=== PATIENT | male | born 2000 | race Caucasian/White ===

== ENCOUNTER 2020-02-17 15:48 | Emergency (ER) | payer OTHER ==
[~2020-02-17] VITALS: Ht 193 cm; Wt 146.0 kg
[2020-02-17 15:48] VITALS: BP 130/60
[2020-02-17] MEDS ORDERED: DERMABOND TOPICAL SKIN ADHESIVE TOP ONE (16:15)
== END 2020-02-17 16:35 | disposition home or self-care (01) ==
LOC: M ED 15:48
DX: S61.412A Laceration without foreign body of left hand, initial encounter (principal); W26.8XXA Contact with other sharp object(s), not elsewhere classified, initial encounter; Y92.018 Other place in single-family (private) house as the place of occurrence of the external cause; Z88.8 Allergy status to other drugs, medicaments and biological substances

== ENCOUNTER 2021-02-09 10:17 | Inpatient (IN) | payer OTHER ==
[~2021-02-09] VITALS: Ht 193 cm; Wt 142.8 kg
[2021-02-09] MEDS ORDERED: ACET1TAB55 PO (10:28)
[2021-02-09 11:12] LABS: ABG BASE EXCESS 0.1 (-2.0-2.0); ABG HCO3 23.2 MEQ/L (22.0-26.0); ABG O2 SATURATION 98.5 % (95.0-99.0); ABG PARTIAL PRESSURE CO2 33.6 mmHg (35.0-45.0); ABG STANDARD HCO3 24.6 MEQ/L (22.0-26.0); ABG TOTAL CO2 24.2 MEQ/L (22.0-29.0); ABG pH (ARTERIAL) 7.457 UNITS (7.350-7.450)
[2021-02-09 11:39] LABS: BASO % 0.2 % (0.0-1.0); EOS % 0.3 % (0.0-3.0); HEMATOCRIT 45.2 % (42.0-52.0); HEMOGLOBIN 15.3 g/dl (13.5-17.5); LYMPH # 1.1 10^3/uL (1.5-5.0); LYMPH % 7.9 % (24.0-44.0); MEAN CORPUSCULAR HEMOGLOBIN 29.8 pg (27.0-33.0); MEAN CORPUSCULAR HGB CONC 33.8 g/dl (32.0-36.5); MEAN CORPUSCULAR VOLUME 88.1 fl (80.0-96.0); MONO # 0.7 10^3/uL (0.0-0.8); MONO % 5.3 % (2.0-8.0); NEUTROPHILS # 11.6 10^3/uL (1.5-8.5); NEUTROPHILS % 85.6 % (36.0-66.0); PLATELET COUNT, AUTOMATED 416 10^3/uL (150-450); RED BLOOD COUNT 5.13 10^6/uL (4.30-6.10); WHITE BLOOD COUNT 13.6 10^3/uL (4.0-10.0)
[2021-02-09 11:50] LABS: INR 1.54; PROTHROMBIN TIME 18.9 SECONDS (12.7-14.5)
[2021-02-09 11:51] LABS: PARTIAL THROMBOPLASTIN TIME 36.4 SECONDS (25.9-37.0)
[2021-02-09 12:04] LABS: CK-MB VALUE MASS < 1.0 NG/ML (<3.6); CPK CREATINE PHOSPHOKINASE 300 U/L (39-308); MB/CK RELATIVE INDEX 0.33 (< OR =4)
[2021-02-09 12:05] LABS: ALBUMIN 3.3 GM/DL (3.2-5.2); ALT/SGPT 117 U/L (12-78); BILIRUBIN,TOTAL 1.6 MG/DL (0.2-1.0); BLOOD UREA NITROGEN 18 MG/DL (7-18); C REACTIVE PROTEIN QUANTITATIV 8.31 MG/DL (0.00-0.30); CALCIUM LEVEL 8.8 MG/DL (8.5-10.1); CARBON DIOXIDE LEVEL 25 MEQ/L (21-32); CHLORIDE LEVEL 108 MEQ/L (98-107); FERRITIN 1301 NG/ML (26-388); GLUCOSE, FASTING 133 MG/DL (70-100); LDH LACTATE DEHYDROGENASE 701 U/L (87-241); MAGNESIUM LEVEL 2.8 MG/DL (1.8-2.4); POTASSIUM SERUM 4.6 MEQ/L (3.5-5.1); SODIUM LEVEL 142 MEQ/L (136-145); TOTAL PROTEIN 7.8 GM/DL (6.4-8.2)
[2021-02-09] MEDS ORDERED: HOME MED LIST COMPLETE! XX SCH (12:05)
[2021-02-09 12:31] LABS: D-DIMER QUANT 3994.87 ng/ml (<500)
[2021-02-09] MEDS ORDERED: ACETAMINOPHEN TAB 650MG DOSE (2X325MG) PO PRN (12:40)
[2021-02-09] MEDS: ASPIRIN 81MG ENTERIC TABLET PO SCH (13:17)
[2021-02-09] MEDS: dexameTHASONE 4 MG/ML 1ML VIAL (J1100 PER 1MG) IV SCH (13:18)
[2021-02-09] MEDS: ALBUTEROL 90 MCG/ACT 8GM HFA INHALER INH SCH ×3 (14:12→20:35)
[2021-02-09] MEDS: ENOXAPARIN 40MG/0.4ML SYRINGE (J1650 PER 10MG) SC SCH (14:51)
[2021-02-09] MEDS ORDERED: REMDESIVIR 200 MG in NS 250 ML IV ONE (15:00)
[2021-02-09] MEDS ORDERED: SODIUM CHLORIDE 0.9% INJ 10 ML SYR IV ONE (16:00)
[2021-02-09 17:55] VITALS: BP 144/67
[2021-02-09] MEDS ORDERED: INFLUENZA QUADRIVALENT PF VACCINE 0.5ML SYRINGE IM PRN (18:20)
[2021-02-09 20:00] VITALS: BP 132/32; O2SAT 93
[2021-02-09] MEDS: PANTOPRAZOLE 40MG TAB (PROTONIX) PO SCH (21:41)
[2021-02-10] VITALS: O2SAT 91
[2021-02-10 04:00] VITALS: BP_SYST 121; BP_SYST 138; BP_DIAS 55; BP_DIAS 64; O2SAT 90
[2021-02-10 07:14] LABS: HEMATOCRIT 40.7 % (42.0-52.0); HEMOGLOBIN 13.6 g/dl (13.5-17.5); MEAN CORPUSCULAR HEMOGLOBIN 29.4 pg (27.0-33.0); MEAN CORPUSCULAR HGB CONC 33.4 g/dl (32.0-36.5); MEAN CORPUSCULAR VOLUME 88.1 fl (80.0-96.0); PLATELET COUNT, AUTOMATED 390 10^3/uL (150-450); RED BLOOD COUNT 4.62 10^6/uL (4.30-6.10); WHITE BLOOD COUNT 10.6 10^3/uL (4.0-10.0)
[2021-02-10 07:38] LABS: ALBUMIN 2.8 GM/DL (3.2-5.2); ALT/SGPT 284 U/L (12-78); BILIRUBIN,DIRECT 0.4 MG/DL (0.0-0.2); BLOOD UREA NITROGEN 16 MG/DL (7-18); CALCIUM LEVEL 8.7 MG/DL (8.5-10.1); CARBON DIOXIDE LEVEL 26 MEQ/L (21-32); CHLORIDE LEVEL 108 MEQ/L (98-107); CREATININE FOR GFR 0.74 MG/DL (0.70-1.30); GLUCOSE, FASTING 110 MG/DL (70-100); MAGNESIUM LEVEL 2.6 MG/DL (1.8-2.4); POTASSIUM SERUM 3.9 MEQ/L (3.5-5.1); SODIUM LEVEL 141 MEQ/L (136-145); TOTAL PROTEIN 7.5 GM/DL (6.4-8.2)
[2021-02-10 08:01] LABS: LYMPHOCYTES 15 % (16-44); METAMYELOCYTES 2 % (0-0); MONOCYTES 13 % (0-5); NEUTROPHILS 70 % (28-66)
[2021-02-10 08:05] LABS: PLATELET ESTIMATE NORMAL (NORMAL); SCHISTOCYTES 1+
[2021-02-10] MEDS: ALBUTEROL 90 MCG/ACT 8GM HFA INHALER INH SCH ×4 (08:06→19:52)
[2021-02-10 08:16] VITALS: O2SAT 92
[2021-02-10] MEDS: ENOXAPARIN 40MG/0.4ML SYRINGE (J1650 PER 10MG) SC SCH (08:35)
[2021-02-10] MEDS: ASPIRIN 81MG ENTERIC TABLET PO SCH (08:35)
[2021-02-10] MEDS: dexameTHASONE 4 MG/ML 1ML VIAL (J1100 PER 1MG) IV SCH (08:36)
[2021-02-10 14:00] VITALS: BP 121/59
[2021-02-10] MEDS: REMDESIVIR 100 MG in NS 250 ML IV SCH (15:41)
[2021-02-10] MEDS: SODIUM CHLORIDE 0.9% INJ 10 ML SYR IV SCH (17:00)
[2021-02-10 20:00] VITALS: BP 119/64; O2SAT 92
[2021-02-10] MEDS: PANTOPRAZOLE 40MG TAB (PROTONIX) PO SCH (22:36)
[2021-02-11] VITALS: O2SAT 94
[2021-02-11 04:00] VITALS: BP 112/59; O2SAT 94
[2021-02-11] MEDS: ALBUTEROL 90 MCG/ACT 8GM HFA INHALER INH SCH ×3 (07:44→16:07)
[2021-02-11 08:33] LABS: BASO % 0.4 % (0.0-1.0); EOS # 0.2 10^3/uL (0.0-0.5); EOS % 1.6 % (0.0-3.0); HEMATOCRIT 38.9 % (42.0-52.0); LYMPH # 2.4 10^3/uL (1.5-5.0); LYMPH % 26.5 % (24.0-44.0); MEAN CORPUSCULAR HEMOGLOBIN 29.5 pg (27.0-33.0); MEAN CORPUSCULAR HGB CONC 33.4 g/dl (32.0-36.5); MEAN CORPUSCULAR VOLUME 88.2 fl (80.0-96.0); MONO # 1.2 10^3/uL (0.0-0.8); MONO % 12.5 % (2.0-8.0); NEUTROPHILS # 5.3 10^3/uL (1.5-8.5); NEUTROPHILS % 57.7 % (36.0-66.0); PLATELET COUNT, AUTOMATED 407 10^3/uL (150-450); RED BLOOD COUNT 4.41 10^6/uL (4.30-6.10); WHITE BLOOD COUNT 9.2 10^3/uL (4.0-10.0)
[2021-02-11 08:45] LABS: INR 1.24
[2021-02-11 08:57] LABS: ALBUMIN 2.8 GM/DL (3.2-5.2); ALT/SGPT 341 U/L (12-78); BILIRUBIN,DIRECT 0.3 MG/DL (0.0-0.2); BILIRUBIN,TOTAL 0.7 MG/DL (0.2-1.0); BLOOD UREA NITROGEN 14 MG/DL (7-18); CALCIUM LEVEL 8.2 MG/DL (8.5-10.1); CARBON DIOXIDE LEVEL 25 MEQ/L (21-32); CHLORIDE LEVEL 111 MEQ/L (98-107); CREATININE FOR GFR 0.61 MG/DL (0.70-1.30); FERRITIN 830 NG/ML (26-388); GLUCOSE, FASTING 77 MG/DL (70-100); LDH LACTATE DEHYDROGENASE 438 U/L (87-241); MAGNESIUM LEVEL 2.4 MG/DL (1.8-2.4); NT-PRO BNP 32 PG/ML (<125); POTASSIUM SERUM 4.5 MEQ/L (3.5-5.1); SODIUM LEVEL 142 MEQ/L (136-145); TOTAL PROTEIN 6.5 GM/DL (6.4-8.2)
[2021-02-11 09:00] VITALS: O2SAT 94
[2021-02-11] MEDS: ASPIRIN 81MG ENTERIC TABLET PO SCH (09:03)
[2021-02-11] MEDS: dexameTHASONE 4 MG/ML 1ML VIAL (J1100 PER 1MG) IV SCH (09:04)
[2021-02-11] MEDS: ENOXAPARIN 40MG/0.4ML SYRINGE (J1650 PER 10MG) SC SCH (09:05)
[2021-02-11] MEDS ORDERED: VENTAER INH (09:52)
[2021-02-11] MEDS ORDERED: PRED10TA2 PO (09:52)
[2021-02-11] MEDS ORDERED: ASPI-551 PO (09:52)
[2021-02-11 10:00] VITALS: O2SAT 91
[2021-02-11] MEDS: REMDESIVIR 100 MG in NS 250 ML IV SCH (15:20)
[2021-02-11] MEDS: SODIUM CHLORIDE 0.9% INJ 10 ML SYR IV SCH (16:40)
== END 2021-02-11 16:45 | disposition home or self-care (01) | DRG 137 ==
LOC: M ED 10:17 → M ED INP 12:40 → ENRESERV 17:10 → M 4MAIN 17:55
PROVIDERS: ADMIT Internal Medicine Nephrology; ATTEND Internal Medicine Nephrology
PROC: XW033E5 Introduction of Remdesivir Anti-infective into Peripheral Vein, Percutaneous Approach, New Technology Group 5 (ICD-10-PCS; principal; 2021-02-09)
PROC: 3E0333Z Introduction of Anti-inflammatory into Peripheral Vein, Percutaneous Approach (ICD-10-PCS; 2021-02-09)
DX: U07.1 COVID-19 (principal); J96.01 Acute respiratory failure with hypoxia; J12.82 Pneumonia due to coronavirus disease 2019; Z88.0 Allergy status to penicillin; Z88.8 Allergy status to other drugs, medicaments and biological substances; R74.01 Elevation of levels of liver transaminase levels; E66.9 Obesity, unspecified; Z68.38 Body mass index [BMI] 38.0-38.9, adult

== ENCOUNTER → 2021-04-24 | Outpatient (REF) | payer OTHER ==
[~2021-04-24] MED LIST: ACET1TAB55 PO; ASPI-551 PO; PRED10TA2 PO; VENTAER INH
[2021-04-24 13:55] LABS: ALBUMIN 4.1 GM/DL (3.2-5.2); ALT/SGPT 53 U/L (12-78); BILIRUBIN,TOTAL 0.5 MG/DL (0.2-1.0); BLOOD UREA NITROGEN 14 MG/DL (7-18); CALCIUM LEVEL 9.3 MG/DL (8.5-10.1); CARBON DIOXIDE LEVEL 27 MEQ/L (21-32); CHLORIDE LEVEL 109 MEQ/L (98-107); CREATININE FOR GFR 0.81 MG/DL (0.70-1.30); FREE T4 0.99 NG/DL (0.78-1.33); GLUCOSE, FASTING 89 MG/DL (70-100); POTASSIUM SERUM 4.2 MEQ/L (3.5-5.1); SODIUM LEVEL 141 MEQ/L (136-145); TOTAL PROTEIN 7.3 GM/DL (6.4-8.2)
== END ==
LOC: M SFHCADAM 09:25
PROVIDERS: ATTEND Family Medicine
DX: Z00.00 Encounter for general adult medical examination without abnormal findings (principal)